=== PATIENT | female | born 1970 | race Caucasian/White ===

== ENCOUNTER 2023-02-18 22:31 | Outpatient (OUT) | payer OTHER, SELFPAY ==
--- NOTE | 2023-02-18 | XR_ITS ---
The [address] [address] Patient Name: GAY PENN MRN: [id number] date: 1970 Sex: F Assigned Patient Location: [facility] Current Patient Location: [facility] Accession/Order Number: [id number] Exam Date: 02/18/2023 23:00 Report Date: 02/19/2023 00:03 At the request of: NON-STAFF PHYSICIAN Procedure: XR knee LT 3V XR foot LT min 3V, XR knee LT 3V 02/18/2023 11:00 PM EDT CLINICAL INDICATION: Injury COMPARISON: None. TECHNIQUE: 3 view left foot. 3 views of the left knee.. FINDINGS: Left foot The bones are intact. The alignment is anatomic. The joints are maintained. The soft tissues are grossly unremarkable. Left knee The bones are intact. The alignment is anatomic. The joints are maintained. Small suprapatellar joint effusion XR/XR knee LT 3V IMPRESSION: No acute osseous abnormality of the left foot or left knee. Small suprapatellar joint effusion. Electronically authenticated by: MADY MCKEON Date: 02/19/2023 00:03
--- NOTE | 2023-02-18 | XR_ITS ---
[address] [address] Patient Name: GAY PENN MRN: [id number] date: 1970 Sex: F Assigned Patient Location: [facility] Current Patient Location: [facility] Accession/Order Number: [id number] Exam Date: 02/18/2023 23:00 Report Date: 02/19/2023 00:03 At the request of: NON-STAFF PHYSICIAN Procedure: XR foot LT min 3V XR foot LT min 3V, XR knee LT 3V 02/18/2023 11:00 PM EDT CLINICAL INDICATION: Injury COMPARISON: None. TECHNIQUE: 3 view left foot. 3 views of the left knee.. FINDINGS: Left foot The bones are intact. The alignment is anatomic. The joints are maintained. The soft tissues are grossly unremarkable. Left knee The bones are intact. The alignment is anatomic. The joints are maintained. Small suprapatellar joint effusion XR/XR foot LT min 3V IMPRESSION: No acute osseous abnormality of the left foot or left knee. Small suprapatellar joint effusion. Electronically authenticated by: MADY MCKEON Date: 02/19/2023 00:03
== END 2023-02-18 22:32 | disposition home or self-care (01) ==
DX: M25.562 Pain in left knee (principal); M79.672 Pain in left foot
CPT/HCPCS: 73562; 73630